=== PATIENT | female | born 1945 | race Two or more races ===

== ENCOUNTER 2021-11-25 23:08 | Emergency (ER) | payer OTHER ==
[~2021-11-25] VITALS: Ht 167.6 cm; Wt 80.7 kg
[2021-11-25] MEDS ORDERED: ZOCOR20 MG (23:32)
[2021-11-25] MEDS ORDERED: LEVOTHYROXINE25 MCG (23:32)
[2021-11-25] MEDS ORDERED: HYZAAR 50-12.51 EACH (23:32)
[2021-11-25] MEDS ORDERED: BETIMOL5 ML (23:33)
== END 2021-11-26 12:56 | disposition home or self-care (01) ==
LOC: ER 23:08
DX: I10 Essential (primary) hypertension (principal); E03.9 Hypothyroidism, unspecified; Z85.43 Personal history of malignant neoplasm of ovary